=== PATIENT | male | born 1975 | race Caucasian/White ===

== ENCOUNTER → 2017-05-30 | Emergency (ER) | payer SELFPAY, OTHER ==
[~2017-05-30] MED LIST: IBUPROFEN 200 MG TAB
[2017-05-30] MEDS: morphine 10 MG INJ IM (17:10)
[2017-05-30] MEDS: KETOROLAC 60 MG INJ IM (17:13)
== END | disposition home or self-care (01) ==
LOC: FTE 16:30
DX: S80.02XA Contusion of left knee, initial encounter (principal); M25.462 Effusion, left knee; S46.912A Strain of unspecified muscle, fascia and tendon at shoulder and upper arm level, left arm, initial encounter; S13.4XXA Sprain of ligaments of cervical spine, initial encounter; S90.32XA Contusion of left foot, initial encounter; V89.2XXA Person injured in unspecified motor-vehicle accident, traffic, initial encounter
CPT/HCPCS: 29505; 70450; 72125; 73030; 73562; 73610-RT; 73630; 96372; 99285-25